=== PATIENT | female | born 1975 | race Caucasian/White ===

== ENCOUNTER 2024-09-29 15:42 | Emergency (ER) | payer MEDICAID, SELFPAY ==
--- NOTE | ~2024-09-29 | XR_ITS ---
CLINICAL HISTORY: PRODUCTIVE COUGH 2 view chest x-ray Comparison: None Findings: No consolidation or effusion. Heart size is normal. No acute fracture. IMPRESSION: 1. No acute findings. This document has been electronically signed by: Brayden Iniguez MD on 09/29/2024 17:37:21
[2024-09-29 16:18] VITALS: BP 161/81; PULSE 103; RESP 18; TEMP 37.2; O2SAT 99; BMI 22.6
--- NOTE | 2024-09-29 16:23 | ECG_ITS ---
Test Reason : HYPERGLCEMIC Blood Pressure : */* mmHG Vent. Rate : 100 BPM Atrial Rate : 100 BPM P-R Int : 122 ms QRS Dur : 72 ms QT Int : 356 ms P-R-T Axes : 57 66 3 degrees QTcB Int : 459 ms Normal sinus rhythm Nonspecific ST and T wave abnormality Borderline ECG No previous ECGs available Referred By: Olesya Hinkle Electronically Signed By: OCTAVIO NEWTON
--- NOTE | 2024-09-29 16:35 | ED.GENADULT ---
HPI - General Adult General Chief complaint: General Medical Stated complaint: Fever, Cough, Vomiting, Diarrhea -Type 1 Diabetes Time Seen by Provider: 09/29/24 18:31 Source: patient Limitations: no limitations History of Present Illness ED Provider: Celeste Pace PA-C HPI narrative: 48-year-old female with a history of tobacco abuse presents with cough and cold symptoms x5 days. Cough is productive at times, can be spasm like and intense, causing her to dry heave. Patient states her grandchild has been sick with similar symptoms. Denies chest pain, shortness of breath, fever. Denies nausea, vomiting, diarrhea. Related Data Previous Rx's ?Medication ?Instructions ?Recorded albuterol sulfate 90 mcg/actuation 2 puff inhalation Q4-6H PRN 09/29/24 aerosol inhaler shortness of breath or wheezing #6.7 grams doxycycline hyclate 100 mg capsule 100 mg PO BID #13 caps 09/29/24 Allergies Allergy/AdvReac Type Severity Reaction Status Date / Time Sulfa (Sulfonamide Allergy Unknown Unknown Verified 09/29/24 16:24 Antibiotics) sulfamethoxazole Allergy Rash Verified 09/29/24 16:24 [From Bactrim] trimethoprim [From Bactrim] Allergy Rash Verified 09/29/24 16:24 Review of Systems Review of Systems: Yes all other systems are reviewed and are negative Constitutional: Constitutional: Reports fatigue, Denies fever(s) and Reports malaise Cardiovascular: Cardiovascular: Denies chest pain and Denies dyspnea Respiratory: Respiratory: Reports chest congestion, Reports cough, Denies dyspnea and Denies wheezing Gastrointestinal: Gastrointestinal: Denies abdominal pain, Denies diarrhea, Denies nausea and Denies vomiting Endocrine: Endocrine: Reports fatigue Allergic/Immunologic: Allergic/Immunologic: Denies wheezing PMF Past Medical History Attestation statement: The following information was validated with the patient. Social History Social History (System 04/08/23 @ 13:33 by Yazmin Neves) Advance Directives: No Advance Directives Information Provided: No Physical Exam ED Vital Signs: Vital Signs - 24 hr 09/29/24 16:18 09/29/24 18:36 09/29/24 20:00 Temperature 98.9 F 98.3 F 98.3 F Pulse Rate 103 H 105 H 93 Respiratory Rate 18 16 16 Blood Pressure 161/81 H 136/92 H 141/68 H Pulse Oximetry 99 98 100 Oxygen Delivery Method Room Air Room Air Room Air BMI result Body Mass Index 22.6 Const Other: Alert well-appearing Orientation/consciousness: patient oriented x3 Resp Other: Nonlabored respirations, lungs clear to auscultation, no active cough at this time Cardio Other: Normal peripheral perfusion Skin Other: Warm dry no rash Neuro General: patient oriented x3, gait normal, no focal motor deficits and CN's II-XI intact bilaterally Psych Other: Cooperative Course Course Course Narrative: This is a Rapid Medical Examination (RME) performed by John Hinkle PA-C in triage. Full HPI, ROS, assessment and treatment plan per primary provider in the Main ED. 09/29/24 1638 CHINO Grimm Hx: 48 yo female hx DM here for eval of of cough productive sputum x5 days w/ dry heaving. She is a type 1 diabetic, reports her sugars have been in the 300s. No appetite. Intermittent nausea without vomiting. Currently smokes tobacco about a half pack a day. temp of 101 this morning, took tylenol and motrin [employer]. reports grand daughter is ill. PE/vitals: well appearing Plan: labs, viral swabs, cxr, ekg Medications Administered Discontinued Medications Generic Name Dose Route Start Last Admin Trade Name Freq PRN Reason Stop Dose Admin Doxycycline Monohydrate 100 mg 09/29/24 19:01 09/29/24 19:22 Doxycycline Monohydrate 100 Mg Capsule PO 09/29/24 19:02 100 mg ONCE ONE Administration Sodium Chloride 1,000 mls @ 999 mls/hr 09/29/24 19:00 09/29/24 20:26 Ns IV 09/29/24 20:00 Infused .Q1H1M JEREMIAH Infusion Medical Decision Making Medical Decision Making [facility] Narrative: 48-year-old female with a history of tobacco abuse presents with cough and cold symptoms x5 days. Cough is productive at times, can be spasm like and intense, causing her to dry heave. Patient states her grandchild has been sick with similar symptoms. Patient states her blood sugar has been poorly managed, noting elevated sugars over 300. Denies chest pain, shortness of breath, fever. Denies nausea, vomiting, diarrhea. Problem: Tobacco abuse History: Per patient I have considered the following differential diagnoses: Pneumonia, bronchitis, viral syndrome, hypoglycemia, HHS, DKA Plan: Screening labs including a viral panel and chest x-ray were obtained from triage, thus far everything is negative. Given she has an active smoker, I will treat her for bronchitis. She describes a concurrent bronchospasm type cough, we will send with an inhaler. Patient's blood sugar is 180, she is not in DKA, there was no gap, we will give IV fluid. I have independently reviewed the following tests: Labs: No leukocytosis, not anemic, blood sugar 180, no gap, no associated electrolyte abnormality, viral panel negative, urine not infected Chest x-ray:MPRESSION: 1. No acute findings. Lab Data 09/29/24 16:40 09/29/24 16:40 Labs: Lab Results 09/29/24 09/29/24 09/29/24 Range/Units 16:40 16:46 16:47 WBC 6.4 (4.8-10.8) X10*3/uL RBC 4.75 (4.20-5.50) X10*6/uL Hgb 14.9 (12.0-16.0) g/dl Hct 42.3 (37.0-47.0) % MCV 89.1 (80.0-98.0) fL MCH 31.4 (27.0-33.0) pg MCHC 35.2 H (31.0-35.0) g/dl RDW 12.1 (11.0-16.0) % Plt Count 263 (160-400) X10*3/uL MPV 10.3 (9.4-12.3) fL Immature Gran % (Auto) 0.3 (0.0-0.4) % Neut % (Auto) 64.3 (45-73) % Lymph % (Auto) 20.4 (20-40) % Hickman % (Auto) 13.6 H (2-11) % Eos % (Auto) 0.9 (0-4) % Baso % (Auto) 0.5 (0-2) % Lymph # (Auto) 1.3 (1.2-4.9) X10*3/uL Hickman # (Auto) 0.9 (0.1-1.2) X10*3/uL Eos # (Auto) 0.1 (0.0-0.4) X10*3/uL Baso # (Auto) 0.0 (0.0-0.2) X10*3/uL Abs Immat Gran (auto) 0.02 (0.00-0.03) X10*3/uL Absolute Neuts (auto) 4.1 (2.0-8.3) x10*3/uL Absolute Nucleated RBC 0.000 (0.0-0.012) X10*3/uL Nucleated RBC % (auto) 0.0 (0.0-0.2) /100WBC VBG pH 7.36 (7.32-7.43) VBG pCO2 49 mmHg VBG pO2 33 mmHg VBG HCO3 28 H (22-26) mmol/L VBG O2 Saturation 44.0 % VBG Base Excess 2.0 mmol/L Sodium 136 (135-145) mmol/L Potassium 4.4 (3.3-5.1) mmol/L Chloride 102 (96-108) mmol/L Carbon Dioxide 25 (22-29) mmol/L Anion Gap 13 (12-20) BUN 6 L (9-16) mg/dL Creatinine 0.72 (0.5-1.4) mg/dL Estim Creat Clear Calc 84.2 Estimated GFR > 60 Random Glucose 182 H (60-115) mg/dL Calcium 9.7 (8.4-10.2) mg/dL Magnesium 2.0 (1.6-2.6) mg/dL Total Bilirubin 0.5 (0.0-1.0) mg/dL AST 26 (5-31) U/L ALT 15 (0-31) U/L Alkaline Phosphatase 75 (39-117) U/L Troponin I High Sens < 2.7 (<3.5-17.0) ng/L Total Protein 8.1 H (6.5-8.0) g/dL Albumin 4.6 (3.5-5.0) g/dL Lipase 8 (8-78) U/L Beta-Hydroxybutyrate 0.66 H (0.02-0.27) mmol/L Urine Color Yellow Urine Appearance Clear Urine pH 6.0 (5.0-9.0) Ur Specific Nicholson 1.015 (1.005-1.025) Urine Protein Negative (Neg-Trace) mg/dL Urine Glucose (UA) Negative (Negative) mg/dL Urine Ketones 80 (Negative) mg/dL Urine Blood Negative (Negative) Urine Nitrite Negative (Negative) Ur Leukocyte Esterase Negative (Negative) Influenza Type A (PCR) NEGATIVE (Negative) Influenza Type B (PCR) NEGATIVE (Negative) RSV RNA Qual (PCR) NEGATIVE (Negative) SARS-CoV-2 RNA (RT-PCR) NEGATIVE (Negative) Discharge Plan Discharge Clinical Impression: Bronchitis Patient Disposition: Home, Self-Care Instructions: Acute Bronchitis (ED) Additional Instructions: All of your screening labs including a viral panel and urinalysis were normal. You were tested for influenza, RSV and COVID. The chest x-ray revealed no pneumonia. You are being treated for bronchitis. See home care instructions. Use the albuterol inhaler as needed for bronchospasm type cough. Take the doxycycline as directed. Follow up with your primary care provider as needed. Prescriptions: New doxycycline hyclate 100 mg capsule 100 mg PO BID Qty: 13 0RF albuterol sulfate 90 mcg/actuation HFA aerosol inhaler 2 puff inhalation Q4-6H PRN (Reason: shortness of breath or wheezing) Qty: 6.7 0RF Print Language: Thai
[2024-09-29 16:46] LABS: MANUAL DIFF FLAG NO
[2024-09-29 16:49] LABS: Basophils Percent Auto 0.5 % (0-2); Eosinophils Absolute Auto 0.1 X10*3/uL (0.0-0.4); Eosinophils Percent Auto 0.9 % (0-4); Hematocrit 42.3 % (37.0-47.0); Hemoglobin 14.9 g/dl (12.0-16.0); Imm Gran Abs Auto 0.02 X10*3/uL (0.00-0.03); Imm Gran Pct Auto 0.3 % (0.0-0.4); Lymphocytes Absolute Auto 1.3 X10*3/uL (1.2-4.9); Lymphocytes Percent Auto 20.4 % (20-40); Mean Corpuscular HGB Conc 35.2 g/dl (31.0-35.0); Mean Corpuscular Hemoglobin 31.4 pg (27.0-33.0); Mean Corpuscular Volume 89.1 fL (80.0-98.0); Mean Platelet Volume 10.3 fL (9.4-12.3); Monocytes Absolute Auto 0.9 X10*3/uL (0.1-1.2); Monocytes Percent Auto 13.6 % (2-11); Neutrophils Absolute Auto 4.1 x10*3/uL (2.0-8.3); Neutrophils Percent Auto 64.3 % (45-73); Platelet Count 263 X10*3/uL (160-400); Red Blood Count 4.75 X10*6/uL (4.20-5.50); Red Cell Distribution Width 12.1 % (11.0-16.0); White Blood Count 6.4 X10*3/uL (4.8-10.8)
[2024-09-29 16:50] LABS: VBG HCO3 28 mmol/L (22-26); VBG pCO2 49 mmHg; VBG pH 7.36 (7.32-7.43); VBG pO2 33 mmHg
[2024-09-29 16:51] LABS: Venous Blood Gas Refer to POC result
[2024-09-29 16:52] LABS: Appearance Urine Clear; Color Urine Yellow; Glucose Urine UA Negative (Negative); Leukocyte Esterase Urine Negative (Negative); Nitrite Urine Negative (Negative); Specific Gravity - Urine 1.015 (1.005-1.025); Urine Blood Negative (Negative); Urine Ketones 80 mg/dL (Negative); Urine Protein Negative (Neg-Trace)
[2024-09-29 17:18] LABS: Alanine Aminotransferase 15 U/L (0-31); Albumin Level 4.6 g/dL (3.5-5.0); Alkaline Phosphatase 75 U/L (39-117); Anion Gap 13 (12-20); Aspartate Amino Transferase 26 U/L (5-31); Beta-Hydroxybutyrate 0.66 mmol/L (0.02-0.27); Bilirubin Total 0.5 mg/dL (0.0-1.0); Blood Urea Nitrogen 6 mg/dL (9-16); Calcium 9.7 mg/dL (8.4-10.2); Carbon Dioxide 25 mmol/L (22-29); Chloride 102 mmol/L (96-108); Creatinine Clr Calc Pharmacy 84.2; Estimated Glomerular Filt Rate > 60; Glucose Random 182 mg/dL (60-115); Lipase 8 U/L (8-78); Potassium 4.4 mmol/L (3.3-5.1); Sodium 136 mmol/L (135-145); Total Protein 8.1 g/dL (6.5-8.0); Troponin-I High Sensitivity < 2.7 ng/L (<3.5-17.0)
[2024-09-29 17:31] LABS: Influenza A PCR NEGATIVE (Negative); Influenza B PCR NEGATIVE (Negative); Resp Syncy Virus RNA Qual PCR NEGATIVE (Negative); SARS COV2 PCR INHOUSE NEGATIVE (Negative)
[2024-09-29 18:36] VITALS: BP 136/92; PULSE 105; RESP 16; TEMP 36.8; O2SAT 98
[2024-09-29] MEDS: Doxycycline Monohydrate 100 MG CAPSULE PO (19:22)
[2024-09-29] MEDS: 0.9 % Sodium Chloride 1,000 ML 999 ML IV (19:22)
[2024-09-29 20:00] VITALS: BP 141/68; PULSE 93; RESP 16; TEMP 36.8; O2SAT 100
[2024-09-29 20:47] VITALS: BP 141/68; PULSE 93; RESP 16; TEMP 36.8; O2SAT 100
== END 2024-09-29 20:47 | disposition home or self-care (01) ==
PROVIDERS: Physician Assistant Medical; Emergency Provider Emergency Medicine
DX: J40 Bronchitis, not specified as acute or chronic (principal); R05.9 Cough, unspecified; Z03.818 Encounter for observation for suspected exposure to other biological agents ruled out; F17.210 Nicotine dependence, cigarettes, uncomplicated
CPT/HCPCS: 0241U; 36415; 71046; 80053; 81003; 82010; 82803; 83690; 83735; 84484; 85025; 93005; 96360; 99284

== ENCOUNTER → 2024-09-29 16:23 | Outpatient (BNV) | payer OTHER, SELFPAY | PROVIDERS: Visit Provider Nuclear Medicine | DX: R05.9 Cough, unspecified (principal) | CPT/HCPCS: 71046 ==

== ENCOUNTER → 2024-09-29 16:23 | Outpatient (BNV) | payer MEDICAID, SELFPAY | PROVIDERS: Emergency Provider Emergency Medicine; Visit Provider Internal Medicine | DX: R73.9 Hyperglycemia, unspecified (principal) | CPT/HCPCS: 93010 ==